=== PATIENT | male | born 1960 | race Caucasian/White ===

== ENCOUNTER 2022-11-10 20:35 | Emergency (ER) | payer MEDICARE, SELFPAY ==
[2022-11-10 20:43] VITALS: BP 128/103; PULSE 101; RESP 20; O2SAT 100
[2022-11-11 00:27] LABS: Appearance Urine Clear (Clear); Bacteria Urine None Seen /hpf; Bilirubin Urine Negative (Negative); Blood Urine Negative (Negative); Color Urine Yellow (Yellow); Glucose Urine UA Negative (Negative); Ketones Urine 1+ mg/dL (Negative); Leukocyte Esterase Ur Trace LEU/UL (Negative); Nitrate Urine Negative (Negative); Non Pathogenic Casts 0-2; Protein Urine Negative (Negative); RBC Urine 0-2 /hpf (0-2); Specific Grav Ur 1.019 (1.001-1.035); Squamous Epithelial Cell Urine None seen /hpf (Few); Urobilinogen Urine 0.2 mg/dL (<2.0); WBC Urine 0-5 /hpf; pH Urine 6.5 (5.0-9.0)
[2022-11-11 00:28] LABS: Add Urine Microscopic? YES
[2022-11-11 00:33] LABS: Basophils Percent Auto 0.3 % (0.2-1.2); Eosinophils Absolute Auto 0.1 K/mm3 (0-0.3); Eosinophils Percent Auto 0.6 % (0-4.4); Hematocrit 48.1 % (42.0-52.0); Hemoglobin 16.3 g/dL (14.0-18.0); Immature Granulocyte Absolute 0.07 K/mm3 (0.00-0.031); Immature Granulocyte Percent A 0.7 % (0-0.5); Lymphocytes Absolute Auto 2.69 K/mm3 (0.9-3.2); Lymphocytes Percent Auto 26.2 % (18.3-44.2); Mean Corpuscular HGB Conc 33.9 g/dl (32-36); Mean Corpuscular Hemoglobin 30.1 pg (26-34); Mean Corpuscular Volume 88.7 fl (80-100); Mean Platelet Volume 8.5 fl (7.4-10.4); Monocytes Absolute Auto 0.7 K/mm3 (0.1-0.6); Monocytes Percent Auto 7.2 % (2.6-8.5); Neutrophils Absolute Auto 6.7 K/mm3 (1.3-6.7); Platelet Count Result 312 k/mm3 (150-375); Red Blood Count 5.42 M/mm3 (4.6-6.20); Red Cell Distribution Width 13.3 % (11.5-14.5); White Blood Count 10.3 K/mm3 (4.5-10.0)
[2022-11-11 00:39] LABS: Amphetamine Screen Urine Negative (Negative); Barbiturate Screen Urine Negative (Negative); Benzodiazepines Screen Urine Negative (Negative); Cannabinoid Screen Urine Positive (Negative); Cocaine Screen Urine Negative (Negative); Methadone Screen Urine Negative (Negative); Opiate Screen Urine Negative (Negative); Phencyclidine Screen Urine Negative (Negative)
[2022-11-11 00:44] LABS: Ethanol < 10 mg/dL (<10)
[2022-11-11 00:45] LABS: Alanine Aminotransferase 35 U/L (6-50); Albumin Level 4.3 g/dL (3.5-5.1); Alkaline Phosphatase 82 U/L (38-126); Anion Gap 12 mmol/L (8-16); Aspartate Amino Transferase 32 U/L (17-59); Bilirubin,Total 1.2 mg/dL (0.2-1.3); Blood Urea Nitrogen 11 mg/dL (9-20); Carbon Dioxide 22 mmol/L (22-30); Chloride 104 mmol/L (98-107); Estimated CRCL calculation 98 ml/min; Estimated Glomerular Filt Rate > 60; Glucose 101 mg/dL (65-110); Potassium 3.9 mmol/L (3.4-5.0); Sodium 138 mmol/L (137-145)
[2022-11-11 00:47] LABS: Salicylate < 1.0 mg/dL (2-20)
[2022-11-11 01:05] LABS: Acetaminophen < 10 ug/mL (10-30)
[2022-11-11 01:15] LABS: Thyroid Stimulating Hormone 0.825 uIU/mL (0.465-4.680)
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
[2022-11-11 02:07] LABS: Influenza A QL RT-PCR Negative (Negative); Influenza B QL RT-PCR Negative (Negative); SARS-CoV-2 RNA PCR Negative (Negative)
[2022-11-11 02:28] VITALS: TEMP 36.8
--- NOTE | 2022-11-11 06:00 | PC.NURSE ---
printing table worker states she faxed chart to [place], [place], and [place]
--- NOTE | 2022-11-11 06:29 | PC.NURSE ---
spoke with intake at [facility], operated by [facility]; advised they will call back
[2022-11-11 06:31] VITALS: BP 130/88; PULSE 90; RESP 18; O2SAT 98
--- NOTE | 2022-11-11 06:35 | PC.NURSE ---
Spoke with [facility] intake who stated that Dr. Little accepted the patient and will call back for further information after their staff does report.
[2022-11-11] MEDS: IBUPROFEN 600 MG TABLET PO (07:39)
[2022-11-11 08:37] VITALS: BP 136/88; PULSE 101; RESP 19; TEMP 36.7; O2SAT 100
[2022-11-11] MEDS: LORazepam (*CRX) 1 MG TABLET PO (09:16)
== END 2022-11-11 09:32 ==
PROVIDERS: Physician Assistant; Student in an Organized Health Care Education/Training Program; Emergency Provider Emergency Medicine
DX: F20.0 Paranoid schizophrenia (principal); Z20.822 Contact with and (suspected) exposure to COVID-19; T50.906A Underdosing of unspecified drugs, medicaments and biological substances, initial encounter
CPT/HCPCS: 36415; 80053; 80307; 81001; 84443; 85025; 87636; 99285; A9270